=== PATIENT | male | born 1965 | race Caucasian/White ===

== ENCOUNTER → 2017-02-01 | Outpatient (REF) | payer BC ==
[~2017-02-01] MED LIST: CELE-19 PO; GABA-283 PO; HYDR-3719 PO; XARE20TA PO
== END ==
LOC: M LABNEURO 13:05
PROVIDERS: ATTEND Physician Assistant Medical
DX: E53.8 Deficiency of other specified B group vitamins (principal)

== ENCOUNTER → 2017-02-22 | Outpatient (REF) | payer BC | LOC: M SFHCLERA 09:59 | PROVIDERS: ATTEND Physician Assistant | DX: L02.416 Cutaneous abscess of left lower limb (principal) ==

== ENCOUNTER → 2017-12-21 | Outpatient (CLI) | payer BC | LOC: M LRY 17:19 | DX: S22.31XA Fracture of one rib, right side, initial encounter for closed fracture (principal); X58.XXXA Exposure to other specified factors, initial encounter; Y92.89 Other specified places as the place of occurrence of the external cause | CPT/HCPCS: 71101 ==

== ENCOUNTER → 2018-09-14 | Outpatient (REF) | payer BC ==
[2018-09-14 14:04] LABS: FOLATE > 24.0 NG/ML
== END ==
LOC: M LABNEURO 09:47
DX: D51.9 Vitamin B12 deficiency anemia, unspecified (principal)
CPT/HCPCS: 82746

== ENCOUNTER → 2018-11-23 | Outpatient (CLI) | payer BC ==
[~2018-11-23] MED LIST changes: -CELE-19 PO; +CELE1CAP4 PO; -GABA-283 PO; +GABA-845 PO
--- NOTE | 2018-11-23 15:39 | REP ---
Clinical: Myeloma. Technique: Adult bone survey. 16 total images obtained for evaluation. Comparison: 01/25/2015. Findings: An expansile lytic lesion in the posterior aspect of the left tenth rib is essentially unchanged. Vertebra plana and compression fracture involving T7 again noted and unchanged. Advanced degenerative disc osteophyte complex at the C5-6 level has progressed. Moderate age-related degenerative changes also noted throughout the remainder of the cervical thoracic and lumbar spine as well as bilateral knees. Subsequent left hip replacement noted on current examination. No new pathologic osseous lesions are identified. Impression: 1. Stable expansile lytic lesion in the left tenth rib. 2. No new pathologic osseous abnormalities appreciated. 3. Chronic changes as described above. Electronically Signed by Colton Sellers MD 11/23/2018 03:30 P
== END ==
LOC: M LAB 14:27
PROVIDERS: ATTEND Internal Medicine Hematology & Oncology
DX: C90.00 Multiple myeloma not having achieved remission (principal); D68.52 Prothrombin gene mutation; Z86.718 Personal history of other venous thrombosis and embolism; D80.1 Nonfamilial hypogammaglobulinemia

== ENCOUNTER → 2019-06-12 | Outpatient (CLI) | payer BC ==
--- NOTE | 2019-06-12 12:16 | REP ---
Left rib series four views: There is an expansile lytic lesion posterolaterally in the left tenth rib, unchanged from 02/16/2014 and visible although partially obscured on 11/04/2006 in this patient with clinical history of multiple myeloma. No acute rib fractures are identified. No other lytic, blastic or destructive changes are identified. There is no pneumothorax, hemothorax or pulmonary contusion. Impression: There is a chronic expansile lytic lesion in the left tenth rib as described in this patient with a clinical history of multiple myeloma. Electronically Signed by Saud Alcantar MD 06/12/2019 12:07 P
--- NOTE | 2019-06-12 12:20 | REP ---
CHEST X-RAY: Two views. HISTORY: Chest congestion. The patient gives a history of myeloma. Comparison is made with December 21, 2017 prior chest x-ray. A comparison skeletal survey is reviewed from November 23, 2018. FINDINGS: The lungs are well inflated and clear. The pleural angles are sharp. Heart size is normal. Virtually complete collapse of the T7 vertebral body is again noted unchanged from the comparison study. Vertebral body heights are otherwise preserved. Heart size is normal. Pulmonary vasculature is not increased. There is an expansile lesion involving the left 10th rib which appears to be unchanged from the November 23, 2018 prior study. IMPRESSION: Old complete collapse of the T7 vertebral body, vertebra plana. Stable expansile lesion posterolateral left 10th rib. Otherwise no active disease. Electronically Signed by Darrell Krause MD 06/12/2019 02:29 P
== END ==
LOC: M LRY 11:27
PROVIDERS: ATTEND Nurse Practitioner Family
DX: R09.89 Other specified symptoms and signs involving the circulatory and respiratory systems (principal); R07.81 Pleurodynia; Z79.01 Long term (current) use of anticoagulants

== ENCOUNTER → 2019-06-26 | Outpatient (REF) | payer BC ==
[2019-06-28 00:06] LABS: Lyme Disease IgG/IgM Antibodie <0.91 ISR (0.00-0.90); Lyme Disease IgM Ab Quantitati <0.80 index (0.00-0.79)
== END ==
LOC: M SFHCLERA 09:19
PROVIDERS: ATTEND Nurse Practitioner Family
DX: Z11.9 Encounter for screening for infectious and parasitic diseases, unspecified (principal); W57.XXXD Bitten or stung by nonvenomous insect and other nonvenomous arthropods, subsequent encounter

== ENCOUNTER → 2019-10-10 | Outpatient (REF) | payer BC ==
[2019-10-10 17:58] LABS: BASO % 0.4 % (0.0-1.0); EOS # 0.1 10^3/uL (0.0-0.5); EOS % 2.6 % (0.0-3.0); HEMATOCRIT 43.1 % (42.0-52.0); HEMOGLOBIN 14.3 g/dl (13.5-17.5); LYMPH # 1.5 10^3/uL (1.5-5.0); LYMPH % 29.8 % (24.0-44.0); MEAN CORPUSCULAR HEMOGLOBIN 31.4 pg (27.0-33.0); MEAN CORPUSCULAR HGB CONC 33.2 g/dl (32.0-36.5); MEAN CORPUSCULAR VOLUME 94.7 fl (80.0-96.0); MONO # 0.6 10^3/uL (0.0-0.8); MONO % 11.3 % (0.0-5.0); NEUTROPHILS # 2.8 10^3/uL (1.5-8.5); NEUTROPHILS % 55.7 % (36.0-66.0); PLATELET COUNT, AUTOMATED 201 10^3/uL (150-450); RED BLOOD COUNT 4.55 10^6/uL (4.30-6.10)
[2019-10-10 18:11] LABS: ALBUMIN 4.1 GM/DL (3.2-5.2); ALT/SGPT 29 U/L (12-78); BILIRUBIN,TOTAL 0.6 MG/DL (0.2-1.0); BLOOD UREA NITROGEN 17 MG/DL (7-18); CALCIUM LEVEL 10.1 MG/DL (8.5-10.1); CARBON DIOXIDE LEVEL 31 MEQ/L (21-32); CHLORIDE LEVEL 105 MEQ/L (98-107); CREATININE FOR GFR 1.08 MG/DL (0.70-1.30); GLOMERULAR FILTRATION RATE > 60.0 (>56); GLUCOSE, FASTING 82 MG/DL (70-100); POTASSIUM SERUM 4.8 MEQ/L (3.5-5.1); RHEUMATOID FACTOR QUANT < 10.0 IU/ML (<15.0); SODIUM LEVEL 138 MEQ/L (136-145); TOTAL PROTEIN 7.8 GM/DL (6.4-8.2)
[2019-10-10 18:14] LABS: FOLATE 12.9 NG/ML; VITAMIN B12 LEVEL 924 PG/ML
[2019-10-10 18:20] LABS: HEMOGLOBIN A1c 5.2 %
[2019-10-10 18:38] LABS: ERYTHROCYTE SEDIMENTATION RATE 4 mm/hr (0-20)
== END ==
LOC: M LABNEURO 11:52
PROVIDERS: ATTEND Physician Assistant Medical
DX: M54.2 Cervicalgia (principal); R41.3 Other amnesia; R42 Dizziness and giddiness

== ENCOUNTER → 2020-05-28 | Outpatient (CLI) | payer BC ==
--- NOTE | 2020-05-28 15:45 | REP ---
Clinical: Multiple myeloma. Technique: Complete adult bone survey (17 total images). Findings: The expansile lesion along the posterior aspect of the left tenth rib is unchanged, and no new suspicious osseous lesions are identified. Chronic vertebral plana at T7 along with degenerative changes of the mid cervical spine, moderate degenerative changes of the thoracic and lumbar spine, arthritic changes to the bilateral knees remain essentially stable. Impression: 1. Stable expansile lesion in the left tenth rib unchanged. 2. No new acute suspicious osseous abnormalities. 3. Chronic stable degenerative changes. Electronically Signed by Colton Sellers MD 05/28/2020 03:36 P
== END ==
LOC: M RAD 14:11
PROVIDERS: ATTEND Internal Medicine Hematology & Oncology
DX: C90.00 Multiple myeloma not having achieved remission (principal)

== ENCOUNTER → 2021-01-30 | Outpatient (REF) | payer OTHER | LOC: M WUC 19:48 | PROVIDERS: ATTEND Physician Assistant | DX: Z20.2 Contact with and (suspected) exposure to infections with a predominantly sexual mode of transmission (principal) ==

== ENCOUNTER → 2022-04-16 | Outpatient (CLI) | payer OTHER ==
[~2022-04-16] MED LIST changes: +GABA-283 PO; -GABA-845 PO
== END ==
LOC: M RAD 15:21
PROVIDERS: ATTEND Internal Medicine Hematology & Oncology
DX: C90.00 Multiple myeloma not having achieved remission (principal); M16.0 Bilateral primary osteoarthritis of hip; Z79.01 Long term (current) use of anticoagulants; N52.9 Male erectile dysfunction, unspecified

== ENCOUNTER → 2023-03-18 | Outpatient (CLI) | payer OTHER | LOC: M RAD 10:18 | PROVIDERS: ATTEND Internal Medicine Hematology & Oncology | DX: C90.00 Multiple myeloma not having achieved remission (principal) ==

== ENCOUNTER → 2024-03-16 | Outpatient (CLI) | payer OTHER ==
[~2024-03-16] MED LIST changes: -GABA-283 PO; +GABA-284 PO
== END ==
LOC: M RAD 15:27
PROVIDERS: ATTEND Internal Medicine Hematology & Oncology
DX: C90.00 Multiple myeloma not having achieved remission (principal); M47.812 Spondylosis without myelopathy or radiculopathy, cervical region; Z96.643 Presence of artificial hip joint, bilateral; Z95.828 Presence of other vascular implants and grafts; M47.814 Spondylosis without myelopathy or radiculopathy, thoracic region; M47.816 Spondylosis without myelopathy or radiculopathy, lumbar region

== ENCOUNTER → 2024-09-07 | Outpatient (CLI) | payer OTHER | LOC: M PLARAD 15:14 | PROVIDERS: ATTEND Internal Medicine Hematology & Oncology | DX: M47.812 Spondylosis without myelopathy or radiculopathy, cervical region (principal); M50.322 Other cervical disc degeneration at C5-C6 level; M50.323 Other cervical disc degeneration at C6-C7 level; C90.02 Multiple myeloma in relapse ==

== ENCOUNTER → 2024-09-28 | Outpatient (CLI) | payer OTHER | LOC: M CARPUL 10:35 | PROVIDERS: ATTEND Internal Medicine Hematology & Oncology | DX: C90.00 Multiple myeloma not having achieved remission (principal) ==

== ENCOUNTER → 2024-10-09 | Outpatient (CLI) | payer OTHER | LOC: M CARPUL 11:03 | PROVIDERS: ATTEND Internal Medicine Hematology & Oncology | DX: C90.00 Multiple myeloma not having achieved remission (principal) ==

== ENCOUNTER → 2025-06-22 | Outpatient (CLI) | payer OTHER | LOC: M PLARAD 13:20 | PROVIDERS: ATTEND Internal Medicine Hematology & Oncology | DX: M47.812 Spondylosis without myelopathy or radiculopathy, cervical region (principal); M48.02 Spinal stenosis, cervical region; M43.12 Spondylolisthesis, cervical region; M43.13 Spondylolisthesis, cervicothoracic region; M50.30 Other cervical disc degeneration, unspecified cervical region; C92.00 Acute myeloblastic leukemia, not having achieved remission ==